=== PATIENT | male | born 1970 | race Caucasian/White ===

== ENCOUNTER 2017-03-04 10:48 | Inpatient (IN) | payer MEDICAID ==
[~2017-03-04] VITALS: Ht 177.8 cm; Wt 117.9 kg
[~2017-03-04 10:48] MED LIST: ALPR1TAB7 PO; BACL20TA PO; BENZ2TAB2 PO; CLON1TAB3 PO; FENT100D2 TD; FLUO20CA19 PO; GABA800T97 PO; HAL5T PO; LEVE100012 PO; LITH300T5 PO; OXYC10TA44 PO; PERCOT PO; PRI50T PO; PROM25TA5 PO; QUET400T PO
[2017-03-04] MEDS ORDERED: SODIUM CHLORIDE 0.9% 1,000 ML IVB ONE (11:03)
[2017-03-04 11:33] LABS: Basophils # (auto) 0 uL; Basophils % (auto) 0.6 % (0.0-2.0); CONDITION Y; Eosinophils # (auto) 0.4 uL; Eosinophils % (auto) 6.5 % (0.0-7.0); Hematocrit 40.3 % (41.0-53.0); Hemoglobin 13.4 g/dL (13.5-17.5); Lymphocytes # (auto) 1.6 uL; Mean Corpuscular Hgb Conc. 33.2 g/dL (32.0-36.0); Mean Corpuscular Volume 87.3 fL (80.0-100.0); Mean Platelet Volume 6.7 fL (7.4-10.4); Monocytes # (auto) 0.4 uL; Monocytes % (auto) 6.3 % (0.0-12.0); Neutrophils # (auto) 4.3 uL; Neutrophils % (auto) 62.6 % (37.0-80.0); Platelet Count (auto) 342 10^3/uL (140-450); Red Cell Distribution Width 13.7 % (11.6-16.0); White Blood Cell 6.8 10^3/uL (4.4-10.8)
[2017-03-04 11:44] LABS: INR 0.95 (0.9-1.15); Partial Thromboplastin Time 25.5 sec (22.64-33.71); Prothrombin Time 10.4 sec (9.37-12.3)
[2017-03-04 11:51] LABS: Albumin 3.3 g/dL (3.4-5.0); Alkaline Phosphatase 137 U/L (45-117); Anion Gap 5 (5-15); Aspartate Aminotransferase 14 U/L (15-37); BUN/Creatinine Ratio 9.8; Bilirubin, Total 0.1 mg/dL (0.2-1.0); Blood Urea Nitrogen 9 mg/dL (7-18); Calcium 8.4 mg/dL (8.5-10.1); Carbon Dioxide 27 mmol/L (21-32); Chloride 109 mmol/L (98-107); GFR African American 113 mL/min; GFR Non-African American 94 mL/min; Glucose 101 mg/dL (74-106); Magnesium 2.3 mg/dL (1.6-2.6); Potassium 3.9 mmol/L (3.5-5.1); Sodium 141 mmol/L (136-145); Total Protein 7.2 g/dL (6.4-8.2)
[2017-03-04] MEDS ORDERED: MORPHINE SULF INJ 2 MG/ML SYRINGE 1ML IV PRN (13:45)
[2017-03-04] MEDS ORDERED: NITROGLYCERIN 0.4 MG SL TAB SL PRN (13:45)
[2017-03-04 13:48] LABS: Acetaminophen < 2.0 ug/mL (10-30); Salicylate 2.8 mg/dL (2.8-20.0)
[2017-03-04] MEDS: SODIUM CHLORIDE 0.9% 1,000 ML IV SCH (14:00)
[2017-03-04] MEDS ORDERED: IOHEXOL 350 MG/ML 100ML IJ ONE (14:09)
[2017-03-04 14:24] LABS: Urine RBC None Seen /hpf (0 - 3)
[2017-03-04 14:45] LABS: Urine Bilirubin Negative (Negative); Urine Blood Negative /uL (Negative); Urine Color Yellow (Yellow); Urine Glucose Normal (Normal); Urine Ketone Negative (Negative); Urine Nitrite Negative (Negative); Urine Urobilinogen Normal (Negative); Urine pH 6.5 (5.0-8.0)
[2017-03-04 20:30] VITALS: BP 123/87
[2017-03-04 22:00] VITALS: BP 123/87
[2017-03-04] MEDS ORDERED: LEVETIRACETAM 500 MG TAB PO SCH (22:00)
[2017-03-05] MEDS: SODIUM CHLORIDE 0.9% 1,000 ML IV SCH
[2017-03-05 00:50] VITALS: BP 123/87
[2017-03-05 05:00] VITALS: BP 107/76
[2017-03-05 07:27] LABS: Basophils # (auto) 0 uL; Basophils % (auto) 0.5 % (0.0-2.0); CONDITION Y; Eosinophils # (auto) 0.5 uL; Eosinophils % (auto) 5.2 % (0.0-7.0); Hematocrit 40.7 % (41.0-53.0); Hemoglobin 13.9 g/dL (13.5-17.5); Lymphocytes # (auto) 1.3 uL; Lymphocytes % (auto) 15.4 % (10.0-50.0); Mean Corpuscular Hemoglobin 29.7 pg (28.0-32.0); Mean Corpuscular Hgb Conc. 34.2 g/dL (32.0-36.0); Mean Corpuscular Volume 86.8 fL (80.0-100.0); Mean Platelet Volume 6.9 fL (7.4-10.4); Monocytes # (auto) 0.4 uL; Monocytes % (auto) 4.7 % (0.0-12.0); Neutrophils # (auto) 6.5 uL; Neutrophils % (auto) 74.2 % (37.0-80.0); Platelet Count (auto) 306 10^3/uL (140-450); White Blood Cell 8.7 10^3/uL (4.4-10.8)
[2017-03-05 07:52] LABS: Albumin 3.3 g/dL (3.4-5.0); BUN/Creatinine Ratio 12.4; Bilirubin, Total 0.2 mg/dL (0.2-1.0); Calcium 8.3 mg/dL (8.5-10.1); Potassium 4.2 mmol/L (3.5-5.1); Total Protein 7.4 g/dL (6.4-8.2)
[2017-03-05 08:46] VITALS: BP 141/100
== END 2017-03-05 07:50 | disposition left against medical advice (07) | DRG 812 ==
LOC: EDBD 10:48 → ER 10:55 → TELE 10:56 → TELE-EAST 21:10
PROVIDERS: ADMIT Nurse Practitioner Family; ATTEND Nurse Practitioner Family
DX: T40.601A Poisoning by unspecified narcotics, accidental (unintentional), initial encounter (principal); G93.1 Anoxic brain damage, not elsewhere classified; I10 Essential (primary) hypertension; J44.9 Chronic obstructive pulmonary disease, unspecified; F32.9 Major depressive disorder, single episode, unspecified; F20.9 Schizophrenia, unspecified; F41.9 Anxiety disorder, unspecified; E66.9 Obesity, unspecified; F17.210 Nicotine dependence, cigarettes, uncomplicated; G89.29 Other chronic pain; Z82.49 Family history of ischemic heart disease and other diseases of the circulatory system; Z90.89 Acquired absence of other organs; Z71.89 Other specified counseling; Z81.8 Family history of other mental and behavioral disorders; Z80.9 Family history of malignant neoplasm, unspecified; Z53.21 Procedure and treatment not carried out due to patient leaving prior to being seen by health care provider
CPT/HCPCS: 36415; 70450; 71010; 80053; 80178; 80307; 80320; 80329; 81001; 82542; 82962; 83605; 83735; 84484; 85025; 85379; 85610; 85730; 87040; 87086; 93005; 96360; 99291

== ENCOUNTER 2021-01-05 16:11 | Emergency (ER) | payer MEDICAID ==
[~2021-01-05] VITALS: Ht 175.3 cm; Wt 102.1 kg
[~2021-01-05 16:11] MED LIST changes: +CLON1TAB10 PO; -CLON1TAB3 PO; -HAL5T PO; -PERCOT PO; -PRI50T PO; +PRIM50TA5 PO; +TEMA15CA2 PO; +TRIH5TAB3 PO
[2021-01-05 16:14] VITALS: BP 116/97
== END 2021-01-05 21:33 | disposition home or self-care (01) ==
LOC: ER 16:11
DX: M79.89 Other specified soft tissue disorders (principal); M79.671 Pain in right foot; J44.9 Chronic obstructive pulmonary disease, unspecified; I10 Essential (primary) hypertension; F41.9 Anxiety disorder, unspecified; F17.210 Nicotine dependence, cigarettes, uncomplicated; F12.10 Cannabis abuse, uncomplicated; F15.10 Other stimulant abuse, uncomplicated
CPT/HCPCS: 73630

== ENCOUNTER 2021-02-15 21:39 | Emergency (ER) | payer MEDICAID ==
[~2021-02-15] VITALS: Ht 170.2 cm; Wt 90.7 kg
[~2021-02-15 21:39] MED LIST changes: +CLON-853 PO; -CLON1TAB10 PO
[2021-02-15] MEDS ORDERED: NALOXONE HCL 0.4 MG/ML VIAL ONE (22:24)
[2021-02-15] MEDS ORDERED: SODIUM CHLORIDE 0.9% 2,000 ML IV ONE (22:30)
[2021-02-15] MEDS ORDERED: NALOXONE HCL 0.4 MG/ML VIAL IV ONE ×2 (22:30→23:15)
[2021-02-15] MEDS ORDERED: FLUMAZENIL 0.1 MG/ML INJ 10ML MDV IV ONE (23:15)
[2021-02-15 23:16] LABS: Basophils # (auto) 0.1 10 ^3/uL (0-0.2); Basophils % (auto) 0.7 % (0.0-2.0); Eosinophils # (auto) 0.4 10 ^3/uL (0-0.8); Eosinophils % (auto) 3.8 % (0.0-7.0); Hematocrit 41.1 % (41.0-53.0); Lymphocytes # (auto) 1.6 10 ^3/uL (0.4-5.4); Lymphocytes % (auto) 14.4 % (10.0-50.0); Mean Corpuscular Hemoglobin 30.2 pg (28.0-32.0); Mean Corpuscular Hgb Conc. 34.1 g/dL (32.0-36.0); Mean Corpuscular Volume 88.7 fL (80.0-100.0); Monocytes # (auto) 0.8 10 ^3/uL (0-1.3); Monocytes % (auto) 6.8 % (0.0-12.0); Neutrophils # (auto) 8.2 10 ^3/uL (1.6-8.6); Neutrophils % (auto) 74.3 % (37.0-80.0); Red Blood Cells 4.64 10^6/uL (4.5-5.90); Red Cell Distribution Width 13.5 % (11.8-14.3); White Blood Cell 11.1 10^3/uL (4.4-10.8)
[2021-02-15 23:36] LABS: Albumin 3.4 g/dL (3.4-5.0); Anion Gap 1 (5-15); BUN/Creatinine Ratio 9.6; Blood Alcohol < 3.0 mg/dL (0-5); Blood Urea Nitrogen 15 mg/dL (7-18); Calcium 8.6 mg/dL (8.5-10.1); Carbon Dioxide 31 mmol/L (21-32); Chloride 104 mmol/L (98-107); GFR African American 60 mL/min; GFR Non-African American 50 mL/min; Glucose 75 mg/dL (74-106); Potassium 4.4 mmol/L (3.5-5.1); Salicylate 3.2 mg/dL (2.8-20.0); Sodium 136 mmol/L (136-145)
[2021-02-15 23:47] LABS: Acetaminophen < 2.0 ug/mL (10-30); Alanine Aminotransferase 19 U/L (16-61); Alkaline Phosphatase 144 U/L (45-117); Aspartate Aminotransferase 13 U/L (15-37); Bilirubin, Total 0.4 mg/dL (0.2-1.0); Total Protein 7.1 g/dL (6.4-8.2)
[2021-02-16] MEDS ORDERED: NALOXONE HCL 2 MG in DEXTROSE 495 ML IV ONE (01:15)
[2021-02-16] MEDS ORDERED: NALOXONE HCL 1MG/ML 2ML SYRINGE ONE (01:24)
[2021-02-16 03:10] LABS: Urine Bacteria NONE SEEN /hpf (None Seen); Urine Blood Negative /uL (Negative); Urine Specific Gravity 1.004 (1.001-1.035); Urine WBC <1 /hpf (0 - 3)
[2021-02-16 03:17] LABS: Alcohol, Urine < 3.0 mg/dL (0-10); Amphetamine Screen, Urine NEGATIVE (NEGATIVE); Barbiturate Scree,Urine NEGATIVE (NEGATIVE); Benzodiazephine Screen, Urine POSITIVE (NEGATIVE); Cannabinoid Screen, Urine POSITIVE (NEGATIVE); Cocaine Screen, Urine NEGATIVE (NEGATIVE); Opiate Scree,Urine POSITIVE (NEGATIVE); Phencyclidine Screen, Urine NEGATIVE (NEGATIVE)
[2021-02-16 09:56] VITALS: BP 130/86
== END 2021-02-16 10:21 | disposition left against medical advice (07) ==
LOC: EDBD 21:39 → ER 21:39
DX: T42.4X1A Poisoning by benzodiazepines, accidental (unintentional), initial encounter (principal); T40.601A Poisoning by unspecified narcotics, accidental (unintentional), initial encounter; R41.82 Altered mental status, unspecified; J44.9 Chronic obstructive pulmonary disease, unspecified; F17.210 Nicotine dependence, cigarettes, uncomplicated; G93.41 Metabolic encephalopathy; F12.10 Cannabis abuse, uncomplicated; F15.10 Other stimulant abuse, uncomplicated; Y92.89 Other specified places as the place of occurrence of the external cause
CPT/HCPCS: 36415; 80053; 80307; 80320; 80329; 81001; 85025; 85049; 87426; 93005; 96361; 96365; 96366; 96375; 96376; 99285; J2310; J7030; J7060

== ENCOUNTER 2022-08-24 07:04 | Emergency (ER) | payer MEDICAID ==
[~2022-08-24] VITALS: Ht 175.3 cm; Wt 100.0 kg
[~2022-08-24 07:04] MED LIST changes: +AMOX-277 PO; +DAKI0.25 EX; +HAL5T PO; +HYDR-4902 PO; +MORP15TA PO; +ONDA-144 PO
[2022-08-24] MEDS ORDERED: CLIN300C8 PO (09:12)
[2022-08-24] MEDS ORDERED: CEPH-510 PO (09:12)
[2022-08-24] MEDS ORDERED: cefTRIAXone 1GM/50ML D5W 50 ML IV ONE (09:15)
[2022-08-24] MEDS ORDERED: CLINDAMYCIN 600MG IV 50 ML IV ONE (09:15)
[2022-08-24 14:54] LABS: Urine Bacteria NONE SEEN /hpf (None Seen); Urine Blood 2+ /uL (Negative); Urine WBC 14 /hpf (0 - 3)
[2022-08-24 15:02] LABS: Urine Specific Gravity > 1.050 (1.001-1.035)
[2022-08-24 15:03] VITALS: BP 130/95
== END 2022-08-24 15:04 | disposition home or self-care (01) ==
LOC: ER 07:04
DX: L03.115 Cellulitis of right lower limb (principal); J44.9 Chronic obstructive pulmonary disease, unspecified; I10 Essential (primary) hypertension; F17.210 Nicotine dependence, cigarettes, uncomplicated; Z90.49 Acquired absence of other specified parts of digestive tract; Z79.899 Other long term (current) drug therapy; Z79.2 Long term (current) use of antibiotics
CPT/HCPCS: 71275; 81001; 96365; 96366; 96367; 99285; J0696; J3490; Q9967

== ENCOUNTER 2022-11-03 11:21 | Outpatient (CLI) | payer MEDICAID ==
[~2022-11-03] VITALS: Ht 175.3 cm; Wt 97.5 kg
[~2022-11-03 11:21] MED LIST changes: +CEPH-510 PO; +CLIN300C8 PO
[2022-11-03 11:42] LABS: Basophils # (auto) 0.1 10 ^3/uL (0-0.2); Eosinophils # (auto) 0.3 10 ^3/uL (0-0.8); Eosinophils % (auto) 3.6 % (0.0-7.0); Hematocrit 47.3 % (41.0-53.0); Hemoglobin 15.7 g/dL (13.5-17.5); Lymphocytes # (auto) 1.4 10 ^3/uL (0.4-5.4); Mean Corpuscular Hemoglobin 29.4 pg (28.0-32.0); Mean Corpuscular Hgb Conc. 33.2 g/dL (32.0-36.0); Mean Corpuscular Volume 88.7 fL (80.0-100.0); Monocytes # (auto) 0.5 10 ^3/uL (0-1.3); Monocytes % (auto) 6.2 % (0.0-12.0); Neutrophils # (auto) 5.7 10 ^3/uL (1.6-8.6); Neutrophils % (auto) 71.2 % (37.0-80.0); Red Blood Cells 5.34 10^6/uL (4.5-5.90); Red Cell Distribution Width 13.4 % (11.8-14.3); White Blood Cell 7.9 10^3/uL (4.4-10.8)
[2022-11-03 12:01] LABS: INR 0.99 (0.9-1.15); Partial Thromboplastin Time 26.8 sec (24.6-33.4)
[2022-11-03 12:26] LABS: Albumin 3.5 g/dL (3.4-5.0); Calcium 9.1 mg/dL (8.5-10.1); Potassium 3.9 mmol/L (3.5-5.1)
[2022-11-03 12:29] LABS: Bilirubin, Total 0.4 mg/dL (0.2-1.0); Total Protein 7.9 g/dL (6.4-8.2)
[2022-11-03 12:43] LABS: Urine Bacteria NONE SEEN /hpf (None Seen); Urine Blood 3+ /uL (Negative); Urine Mucus FEW (None Seen); Urine Specific Gravity 1.026 (1.001-1.035); Urine WBC 7 /hpf (0 - 3)
[2022-11-06] MEDS ORDERED: GLYCOPYRROLATE 0.2 MG/ML 1ML VIAL ONE (11:00)
[2022-11-06] MEDS ORDERED: MIDAZOLAM HCL 2MG/2ML 2ml VIAL (1mg/ml) ONE (11:00)
[2022-11-06] MEDS ORDERED: ONDANSETRON HCL 4 MG/2 ML VIAL ONE (11:00)
[2022-11-06] MEDS ORDERED: PROPOFOL 10 MG/ML 20 ML IV ONE (11:00)
== END 2022-11-03 12:46 | disposition home or self-care (01) ==
LOC: LAB 11:21 → EDSTATUS 11-06 08:48
PROVIDERS: ATTEND Student in an Organized Health Care Education/Training Program
DX: Z01.812 Encounter for preprocedural laboratory examination (principal); Z20.822 Contact with and (suspected) exposure to COVID-19
CPT/HCPCS: 36415; 80053; 81001; 85025; 85610; 85730; U0003; J2250; J2405; J2704

== ENCOUNTER 2022-11-06 08:44 | Inpatient (IN) | payer MEDICAID ==
[~2022-11-06] VITALS: Ht 175.3 cm; Wt 114.5 kg
[~2022-11-06 08:44] MED LIST changes: -AMOX-277 PO; -BACL20TA PO; -CEPH-510 PO; -CLIN300C8 PO; -FENT100D2 TD; -HAL5T PO; -OXYC10TA44 PO; -TEMA15CA2 PO; -TRIH5TAB3 PO
[2022-11-06] MEDS ORDERED: SODIUM CHLORIDE 0.9% 1,000 ML IV ONE (10:00)
[2022-11-06] MEDS ORDERED: BUPIVACAINE HCL 50 ML ONE (10:02)
[2022-11-06] MEDS ORDERED: LIDOCAINE HCL (LOCAL ANESTH.) 0.5 % 50ML MDV IJ ONE (10:02)
[2022-11-06 11:04] LABS: INR 1.03 (0.9-1.15); Partial Thromboplastin Time 24.2 sec (24.6-33.4)
[2022-11-06] MEDS ORDERED: HYDROmorphone HCL 2 MG/ML VL/or syr IV PRN (12:30)
[2022-11-06] MEDS ORDERED: ONDANSETRON HCL 4 MG/2 ML VIAL IV PRN ×2 (12:30→15:00)
[2022-11-06] MEDS ORDERED: MORPHINE SULFATE INJ 2 MG/ml SYRG IV PRN (15:00)
[2022-11-06] MEDS ORDERED: HYDROcodone-ACET 5/325MG TAB PO PRN (15:00)
[2022-11-06] MEDS ORDERED: ACETAMINOPHEN 325 MG TAB PO PRN (15:00)
[2022-11-06] MEDS ORDERED: NITROGLYCERIN 0.4 MG SL TAB SL PRN (15:00)
[2022-11-06] MEDS ORDERED: cefTRIAXone 1GM/50ML D5W 50 ML IV ONE (15:00)
[2022-11-06] MEDS ORDERED: DOCUSATE SOD 100 MG CAP PO PRN (15:00)
[2022-11-06] MEDS ORDERED: ALPR1TAB7 PO (15:02)
[2022-11-06] MEDS ORDERED: ROSU1TAB13 PO (15:02)
[2022-11-06] MEDS ORDERED: HAL5T PO (15:02)
[2022-11-06] MEDS ORDERED: QUET400T13 PO (15:02)
[2022-11-06] MEDS ORDERED: LITH300C3 PO (15:02)
[2022-11-06] MEDS ORDERED: VANCOMYCIN PER PHARMACY 0 MG IV SCH (16:45)
[2022-11-06] MEDS ORDERED: VANCOMYCIN 1GM/250ML 250 ML IV ONE (17:15)
[2022-11-06] MEDS: HALOPERIDOL 5 MG TAB PO SCH ×2 (18:28→21:42)
[2022-11-06 18:29] LABS: Basophils # (auto) 0.1 10 ^3/uL (0-0.2); Basophils % (auto) 0.7 % (0.0-2.0); Eosinophils # (auto) 0.4 10 ^3/uL (0-0.8); Hematocrit 43.5 % (41.0-53.0); Hemoglobin 14.2 g/dL (13.5-17.5); Lymphocytes # (auto) 1.5 10 ^3/uL (0.4-5.4); Lymphocytes % (auto) 15.5 % (10.0-50.0); Mean Corpuscular Hemoglobin 28.9 pg (28.0-32.0); Mean Corpuscular Hgb Conc. 32.6 g/dL (32.0-36.0); Mean Corpuscular Volume 88.7 fL (80.0-100.0); Monocytes # (auto) 0.6 10 ^3/uL (0-1.3); Monocytes % (auto) 6.5 % (0.0-12.0); Neutrophils # (auto) 7.3 10 ^3/uL (1.6-8.6); Neutrophils % (auto) 73.3 % (37.0-80.0); Red Cell Distribution Width 13.5 % (11.8-14.3); White Blood Cell 9.9 10^3/uL (4.4-10.8)
[2022-11-06] MEDS: MORPHINE SULFATE INJ 2 MG/ml SYRG IV PRN (18:46)
[2022-11-06] MEDS ORDERED: CYCL-839 PO (19:06)
[2022-11-06] MEDS ORDERED: FENT25DI2 TD (19:06)
[2022-11-06] MEDS ORDERED: ALPR1TAB2 PO (19:06)
[2022-11-06 19:08] LABS: Calcium 8.9 mg/dL (8.5-10.1); Potassium 4.3 mmol/L (3.5-5.1)
[2022-11-06 19:11] LABS: Albumin 3.1 g/dL (3.4-5.0)
[2022-11-06 19:14] LABS: Bilirubin, Total 0.6 mg/dL (0.2-1.0)
[2022-11-06 20:00] VITALS: BP 94/56
[2022-11-06] MEDS: LITHIUM CARBONATE 300 MG TAB PO SCH (21:41)
[2022-11-06] MEDS: GABAPENTIN 400 MG CAP PO SCH (21:41)
[2022-11-06] MEDS: MORPHINE SULF 30 mg ER tab PO SCH (21:42)
[2022-11-06 22:00] VITALS: BP 94/56
[2022-11-06] MEDS ORDERED: MORPHINE SULFATE 15 MG PO SCH (22:00)
[2022-11-06] MEDS: ATORVASTATIN 20 MG TAB PO SCH (22:00)
[2022-11-07 05:11] VITALS: BP 127/89
[2022-11-07] MEDS: GABAPENTIN 400 MG CAP PO SCH ×3 (06:08→21:36)
[2022-11-07] MEDS: MORPHINE SULFATE INJ 2 MG/ml SYRG IV PRN ×2 (06:11→18:24)
[2022-11-07] MEDS: VANCOMYCIN 750mg/250ml 250 ML IV SCH ×2 (06:13→18:22)
[2022-11-07] MEDS: HALOPERIDOL 5 MG TAB PO SCH ×4 (06:16→21:36)
[2022-11-07 06:29] LABS: Basophils # (auto) 0.1 10 ^3/uL (0-0.2); Basophils % (auto) 0.6 % (0.0-2.0); Eosinophils # (auto) 0.5 10 ^3/uL (0-0.8); Eosinophils % (auto) 5.5 % (0.0-7.0); Hematocrit 40.5 % (41.0-53.0); Hemoglobin 13.4 g/dL (13.5-17.5); Lymphocytes # (auto) 1.7 10 ^3/uL (0.4-5.4); Lymphocytes % (auto) 17.9 % (10.0-50.0); Mean Corpuscular Hemoglobin 28.9 pg (28.0-32.0); Mean Corpuscular Hgb Conc. 33.1 g/dL (32.0-36.0); Mean Corpuscular Volume 87.3 fL (80.0-100.0); Monocytes # (auto) 0.6 10 ^3/uL (0-1.3); Monocytes % (auto) 6.6 % (0.0-12.0); Neutrophils # (auto) 6.7 10 ^3/uL (1.6-8.6); Neutrophils % (auto) 69.4 % (37.0-80.0); Nucleated Red Blood Cells % 0.2 %; Red Blood Cells 4.64 10^6/uL (4.5-5.90); White Blood Cell 9.6 10^3/uL (4.4-10.8)
[2022-11-07 06:32] LABS: Albumin 3.1 g/dL (3.4-5.0); Calcium 8.6 mg/dL (8.5-10.1); Potassium 4.4 mmol/L (3.5-5.1)
[2022-11-07 06:34] LABS: BUN/Creatinine Ratio 11.5
[2022-11-07 06:37] LABS: Bilirubin, Total 0.5 mg/dL (0.2-1.0); Total Protein 6.3 g/dL (6.4-8.2)
[2022-11-07 08:26] VITALS: BP 131/85
[2022-11-07] MEDS ORDERED: cefTRIAXone 1GM/50ML D5W 50 ML IV SCH (09:00)
[2022-11-07] MEDS: PANTOPRAZOLE 40 MG/10 ML VIAL INJ IV SCH (09:51)
[2022-11-07] MEDS: LITHIUM CARBONATE 300 MG TAB PO SCH ×2 (09:52→21:35)
[2022-11-07] MEDS: FLUoxetine HCL 20 MG CAP PO SCH (09:52)
[2022-11-07] MEDS: MORPHINE SULF 30 mg ER tab PO SCH ×2 (09:53→21:37)
[2022-11-07] MEDS ORDERED: QUEtiapine FUMARATE 100 MG TAB PO SCH (10:00)
[2022-11-07 13:00] VITALS: BP 123/82
[2022-11-07 17:27] VITALS: BP 105/70
[2022-11-07 20:00] VITALS: BP 134/76
[2022-11-07] MEDS: ATORVASTATIN 20 MG TAB PO SCH (21:36)
[2022-11-07 22:00] VITALS: BP 91/49
[2022-11-08] MEDS: MORPHINE SULFATE INJ 2 MG/ml SYRG IV PRN ×3 (04:26→18:37)
[2022-11-08 05:00] VITALS: BP 110/69
[2022-11-08] MEDS: HALOPERIDOL 5 MG TAB PO SCH ×4 (06:35→21:43)
[2022-11-08] MEDS: GABAPENTIN 400 MG CAP PO SCH ×3 (06:35→21:41)
[2022-11-08] MEDS: VANCOMYCIN 750mg/250ml 250 ML IV SCH (06:36)
[2022-11-08 09:00] VITALS: BP 138/84
[2022-11-08] MEDS: LITHIUM CARBONATE 300 MG TAB PO SCH ×2 (10:26→21:40)
[2022-11-08] MEDS: PANTOPRAZOLE 40 MG/10 ML VIAL INJ IV SCH (10:26)
[2022-11-08] MEDS: MORPHINE SULF 30 mg ER tab PO SCH ×2 (10:27→21:40)
[2022-11-08] MEDS: FLUoxetine HCL 20 MG CAP PO SCH (10:27)
[2022-11-08 13:00] VITALS: BP 134/88
[2022-11-08 17:00] VITALS: BP 144/93
[2022-11-08] MEDS: VANCOMYCIN 1GM/250ML 250 ML IV SCH (19:45)
[2022-11-08 20:00] VITALS: BP 142/91
[2022-11-08] MEDS: QUEtiapine FUMARATE 100 MG TAB PO SCH (21:41)
[2022-11-08] MEDS: ATORVASTATIN 20 MG TAB PO SCH (21:42)
[2022-11-08 22:15] VITALS: BP 142/91
[2022-11-09] MEDS: MORPHINE SULFATE INJ 2 MG/ml SYRG IV PRN ×5 (00:07→20:36)
[2022-11-09 04:55] VITALS: BP 115/72
[2022-11-09] MEDS: HALOPERIDOL 5 MG TAB PO SCH ×4 (05:46→21:35)
[2022-11-09] MEDS: GABAPENTIN 400 MG CAP PO SCH ×3 (05:46→21:36)
[2022-11-09] MEDS: VANCOMYCIN 1GM/250ML 250 ML IV SCH (06:13)
[2022-11-09 08:00] VITALS: BP 136/91
[2022-11-09] MEDS: FLUoxetine HCL 20 MG CAP PO SCH (09:15)
[2022-11-09] MEDS: MORPHINE SULF 30 mg ER tab PO SCH ×2 (09:15→21:36)
[2022-11-09] MEDS: LITHIUM CARBONATE 300 MG TAB PO SCH ×2 (09:15→21:35)
[2022-11-09] MEDS: PANTOPRAZOLE 40 MG/10 ML VIAL INJ IV SCH (09:15)
[2022-11-09 12:00] VITALS: BP 145/77
[2022-11-09] MEDS: AMPICILLIN & SULBACTAM SODIUM 3 GM in SODIUM CHL 0.9% 100 ML IV SCH ×2 (14:06→18:47)
[2022-11-09 16:00] VITALS: BP 146/98
[2022-11-09 16:25] LABS: INR 1.02 (0.9-1.15); Partial Thromboplastin Time 27.6 sec (24.6-33.4)
[2022-11-09] MEDS ORDERED: LIDOCAINE 1% (LOCAL ANESTH.) PF 5ml SDV ID ONE (19:15)
[2022-11-09 20:00] VITALS: BP 144/84
[2022-11-09] MEDS: SODIUM CHLOR 0.9% PF (SALINE LOCK) 10ML VIAL/SYR IV SCH (21:34)
[2022-11-09] MEDS: ATORVASTATIN 20 MG TAB PO SCH (21:36)
[2022-11-09] MEDS: QUEtiapine FUMARATE 100 MG TAB PO SCH (21:37)
[2022-11-09 22:00] VITALS: BP 144/84
[2022-11-10] MEDS: AMPICILLIN & SULBACTAM SODIUM 3 GM in SODIUM CHL 0.9% 100 ML IV SCH ×3 (00:37→12:37)
[2022-11-10] MEDS: MORPHINE SULFATE INJ 2 MG/ml SYRG IV PRN ×3 (02:29→12:36)
[2022-11-10 05:00] VITALS: BP 130/86
[2022-11-10] MEDS: GABAPENTIN 400 MG CAP PO SCH ×2 (05:42→14:38)
[2022-11-10] MEDS: HALOPERIDOL 5 MG TAB PO SCH ×2 (05:42→12:36)
[2022-11-10 08:00] VITALS: BP_SYST 128; BP_SYST 144; BP_DIAS 83; BP_DIAS 84
[2022-11-10] MEDS: FLUoxetine HCL 20 MG CAP PO SCH (10:26)
[2022-11-10] MEDS: LITHIUM CARBONATE 300 MG TAB PO SCH (10:26)
[2022-11-10] MEDS: MORPHINE SULF 30 mg ER tab PO SCH (10:26)
[2022-11-10] MEDS: SODIUM CHLOR 0.9% PF (SALINE LOCK) 10ML VIAL/SYR IV SCH (10:29)
[2022-11-10 12:45] LABS: BUN/Creatinine Ratio 8.4 (10.0-20.0); Calcium 8.9 mg/dL (8.5-10.1); Potassium 3.8 mmol/L (3.5-5.1)
[2022-11-10 13:00] VITALS: BP 141/90
== END 2022-11-10 15:53 | disposition home health service (06) | DRG 314 ==
LOC: ER 08:44 → OVERFLOW 15:02 → TELE-EAST 16:10
PROVIDERS: ADMIT Nurse Practitioner Family; ATTEND Internal Medicine
PROC: 0Y6V0Z0 Detachment at Right 4th Toe, Complete, Open Approach (ICD-10-PCS; principal; 2022-11-06 11:20)
PROC: 02HV33Z Insertion of Infusion Device into Superior Vena Cava, Percutaneous Approach (ICD-10-PCS; 2022-11-09)
PROC: B548ZZA Ultrasonography of Superior Vena Cava, Guidance (ICD-10-PCS; 2022-11-09)
DX: E11.69 Type 2 diabetes mellitus with other specified complication (principal); J96.00 Acute respiratory failure, unspecified whether with hypoxia or hypercapnia; M86.171 Other acute osteomyelitis, right ankle and foot; S91.311A Laceration without foreign body, right foot, initial encounter; E66.9 Obesity, unspecified; B95.61 Methicillin susceptible Staphylococcus aureus infection as the cause of diseases classified elsewhere; R56.9 Unspecified convulsions; F20.9 Schizophrenia, unspecified; F32.A Depression, unspecified; F41.9 Anxiety disorder, unspecified; I10 Essential (primary) hypertension; K59.00 Constipation, unspecified; R32 Unspecified urinary incontinence; X58.XXXA Exposure to other specified factors, initial encounter; Y93.89 Activity, other specified; Y92.89 Other specified places as the place of occurrence of the external cause; Y99.8 Other external cause status
CPT/HCPCS: 36415; 36569; 71045; 73630; 80048; 80053; 80178; 80202; 85025; 85610; 85730; 87070; 87075; 87076; 87077; 87186; 87205; 87426; 96360; C9113; G0378; J0696; J2250; J2405; J2704; J3490

== ENCOUNTER 2023-06-08 18:33 | Emergency (ER) | payer MEDICAID ==
[~2023-06-08] VITALS: Ht 182.9 cm; Wt 113.6 kg
[~2023-06-08 18:33] MED LIST changes: +ALPR1TAB2 PO; -ALPR1TAB7 PO; -BENZ2TAB2 PO; +BENZ2TAB50 PO; +CYCL-839 PO; -DAKI0.25 EX; +FENT25DI2 TD; +HAL5T PO; -HYDR-4902 PO; +LITH300C3 PO; +PROM25TA10 PO; -PROM25TA5 PO; -QUET400T PO; +QUET400T13 PO; +ROSU10TA64 PO
[2023-06-08] MEDS ORDERED: SODIUM CHLORIDE 0.9% 1,000 ML IV ONE ×2 (19:00→20:15)
[2023-06-08 19:30] VITALS: PULSE 70; RESP 18; TEMP 98.6; O2SAT 94
[2023-06-08 19:33] LABS: Basophils # (auto) 0.1 10 ^3/uL (0-0.2); Basophils % (auto) 0.7 % (0.0-2.0); Eosinophils # (auto) 0.4 10 ^3/uL (0-0.8); Eosinophils % (auto) 4.2 % (0.0-7.0); Hematocrit 36.5 % (41.0-53.0); Hemoglobin 12.1 g/dL (13.5-17.5); Lymphocytes % (auto) 9.2 % (10.0-50.0); Mean Corpuscular Hemoglobin 29.7 pg (28.0-32.0); Mean Corpuscular Hgb Conc. 33.2 g/dL (32.0-36.0); Mean Corpuscular Volume 89.3 fL (80.0-100.0); Monocytes # (auto) 0.6 10 ^3/uL (0-1.3); Monocytes % (auto) 6.1 % (0.0-12.0); Neutrophils # (auto) 8.3 10 ^3/uL (1.6-8.6); Neutrophils % (auto) 79.8 % (37.0-80.0); Red Blood Cells 4.08 10^6/uL (4.5-5.90); Red Cell Distribution Width 12.9 % (11.8-14.3); White Blood Cell 10.4 10^3/uL (4.4-10.8)
[2023-06-08 19:52] LABS: Alanine Aminotransferase 27 U/L (7-40); Albumin 3.9 g/dL (3.2-4.8); Alkaline Phosphatase 131 U/L (46-116); Anion Gap 4 (5-15); Aspartate Aminotransferase 34 U/L (13-40); BUN/Creatinine Ratio 8.2 (10.0-20.0); Bilirubin, Total 0.2 mg/dL (0.2-1.0); Blood Urea Nitrogen 19 mg/dL (9-23); Calcium 8.8 mg/dL (8.5-10.1); Carbon Dioxide 29 mmol/L (20-30); Chloride 101 mmol/L (98-107); Glucose 112 mg/dL (74-106); Potassium 4.1 mmol/L (3.5-5.1); Sodium 134 mmol/L (136-145); Total Protein 6.6 g/dL (5.7-8.2)
[2023-06-09 00:13] LABS: Amphetamine Screen, Urine Neg (NEGATIVE); Barbiturate Scree,Urine Pos (NEGATIVE); Benzodiazephine Screen, Urine Pos (NEGATIVE); Cocaine Screen, Urine Neg (NEGATIVE); Opiate Scree,Urine Pos (NEGATIVE)
[2023-06-09 00:14] LABS: Cannabinoid Screen, Urine Pos (NEGATIVE); Phencyclidine Screen, Urine Neg (NEGATIVE)
[2023-06-09 07:20] VITALS: PULSE 70; RESP 18; O2SAT 98
[2023-06-09] MEDS ORDERED: levETIRAcetam 500 MG TAB PO ONE (07:45)
[2023-06-09 08:00] VITALS: BP 106/47; PULSE 73; RESP 18; O2SAT 97
[2023-06-12 16:06] LABS: Levetiracetam (Keppra) 67.7 ug/mL (10.0-40.0)
== END 2023-06-09 08:32 | disposition home or self-care (01) ==
LOC: EDBD 18:33 → ER 18:33
DX: G40.909 Epilepsy, unspecified, not intractable, without status epilepticus (principal); F11.20 Opioid dependence, uncomplicated; I10 Essential (primary) hypertension; R51.9 Headache, unspecified; J44.9 Chronic obstructive pulmonary disease, unspecified; F17.210 Nicotine dependence, cigarettes, uncomplicated
CPT/HCPCS: 36415; 70450; 80053; 80178; 80307; 82542; 85025; 93005; 96360; 96361; 99285; J7030

== ENCOUNTER 2023-08-19 12:57 | Emergency (ER) | payer MEDICAID ==
[~2023-08-19] VITALS: Ht 175.3 cm; Wt 109.9 kg
[2023-08-19 13:00] VITALS: BP 123/70; RESP 16; O2SAT 94
[2023-08-19 13:15] VITALS: PULSE 71
[2023-08-19] MEDS ORDERED: LACTATED RINGER'S 1,000 ML IV ONE (13:15)
[2023-08-19 14:05] LABS: Basophils # (auto) 0.1 10 ^3/uL (0-0.2); Basophils % (auto) 0.8 % (0.0-2.0); Eosinophils # (auto) 0.2 10 ^3/uL (0-0.8); Eosinophils % (auto) 2.6 % (0.0-7.0); Hematocrit 38.8 % (41.0-53.0); Hemoglobin 12.8 g/dL (13.5-17.5); Lymphocytes # (auto) 0.5 10 ^3/uL (0.4-5.4); Lymphocytes % (auto) 5.9 % (10.0-50.0); Mean Corpuscular Hemoglobin 29.6 pg (28.0-32.0); Mean Corpuscular Volume 89.7 fL (80.0-100.0); Monocytes # (auto) 0.3 10 ^3/uL (0-1.3); Monocytes % (auto) 3.6 % (0.0-12.0); Neutrophils # (auto) 7.2 10 ^3/uL (1.6-8.6); Neutrophils % (auto) 87.1 % (37.0-80.0); Red Blood Cells 4.33 10^6/uL (4.5-5.90); Red Cell Distribution Width 13.7 % (11.8-14.3); White Blood Cell 8.3 10^3/uL (4.4-10.8)
[2023-08-19 14:33] LABS: Alanine Aminotransferase 14 U/L (7-40); Albumin 4.3 g/dL (3.2-4.8); Alkaline Phosphatase 192 U/L (46-116); Anion Gap 7 (5-15); Aspartate Aminotransferase 22 U/L (13-40); BUN/Creatinine Ratio 14.5 (10.0-20.0); Blood Alcohol < 3.0 mg/dL (<10); Blood Urea Nitrogen 36 mg/dL (9-23); Calcium 9.6 mg/dL (8.5-10.1); Carbon Dioxide 24 mmol/L (20-30); Chloride 102 mmol/L (98-107); Glucose 82 mg/dL (74-106); Potassium 4.1 mmol/L (3.5-5.1); Sodium 133 mmol/L (136-145)
[2023-08-19 14:34] LABS: Bilirubin, Total 0.3 mg/dL (0.2-1.0); Total Protein 6.8 g/dL (5.7-8.2)
[2023-08-19 14:36] LABS: Magnesium 2.5 mg/dL (1.6-2.6)
[2023-08-19] MEDS ORDERED: ZOFR4T PO (21:07)
== END 2023-08-20 04:26 | disposition left against medical advice (07) ==
LOC: EDBD 12:57 → ER 12:57
DX: M79.10 Myalgia, unspecified site (principal); R11.2 Nausea with vomiting, unspecified; R68.83 Chills (without fever); R07.89 Other chest pain; I10 Essential (primary) hypertension; J44.9 Chronic obstructive pulmonary disease, unspecified; F17.210 Nicotine dependence, cigarettes, uncomplicated; Z90.49 Acquired absence of other specified parts of digestive tract; Z79.899 Other long term (current) drug therapy
CPT/HCPCS: 36415; 71046; 80053; 80320; 83605; 83735; 84484; 85025; 87040; 93005

== ENCOUNTER 2023-08-24 08:25 | Inpatient (IN) | payer MEDICAID ==
[~2023-08-24] VITALS: Ht 175.3 cm; Wt 100.8 kg
[~2023-08-24 08:25] MED LIST changes: +ZOFR4T PO
[2023-08-24 09:42] LABS: Basophils # (auto) 0 10 ^3/uL (0-0.2); Basophils % (auto) 0.4 % (0.0-2.0); Eosinophils # (auto) 0.3 10 ^3/uL (0-0.8); Hematocrit 44.1 % (41.0-53.0); Hemoglobin 14.1 g/dL (13.5-17.5); Lymphocytes # (auto) 1.1 10 ^3/uL (0.4-5.4); Lymphocytes % (auto) 10.1 % (10.0-50.0); Mean Corpuscular Hemoglobin 29.8 pg (28.0-32.0); Mean Corpuscular Hgb Conc. 31.9 g/dL (32.0-36.0); Mean Corpuscular Volume 93.2 fL (80.0-100.0); Monocytes # (auto) 0.6 10 ^3/uL (0-1.3); Monocytes % (auto) 5.2 % (0.0-12.0); Neutrophils # (auto) 9.2 10 ^3/uL (1.6-8.6); Neutrophils % (auto) 81.3 % (37.0-80.0); Red Blood Cells 4.73 10^6/uL (4.5-5.90); Red Cell Distribution Width 14.2 % (11.8-14.3); White Blood Cell 11.3 10^3/uL (4.4-10.8)
[2023-08-24 10:25] LABS: Alanine Aminotransferase 18 U/L (7-40); Albumin 4.8 g/dL (3.2-4.8); Alkaline Phosphatase 251 U/L (46-116); Anion Gap 6 (5-15); Aspartate Aminotransferase 13 U/L (13-40); BUN/Creatinine Ratio 7.9 (10.0-20.0); Bilirubin, Total 0.4 mg/dL (0.2-1.0); Blood Urea Nitrogen 11 mg/dL (9-23); Calcium 10.4 mg/dL (8.5-10.1); Carbon Dioxide 27 mmol/L (20-30); Chloride 104 mmol/L (98-107); Glucose 90 mg/dL (74-106); Potassium 4.2 mmol/L (3.5-5.1); Sodium 137 mmol/L (136-145)
[2023-08-24 10:26] LABS: Total Protein 7.8 g/dL (5.7-8.2)
[2023-08-24 10:47] LABS: Urine Bacteria NONE SEEN /hpf (None Seen); Urine Blood 1+ /uL (Negative); Urine Clarity Clear (Clear); Urine Color Yellow (Yellow); Urine Hyaline Cast FEW /lpf (0 - 2); Urine Mucus FEW (None Seen); Urine Protein, UAD 1+ (Negative); Urine Specific Gravity 1.025 (1.001-1.035); Urine WBC 6 /hpf (0 - 3)
[2023-08-24 11:00] LABS: Amphetamine Screen, Urine Neg (NEGATIVE)
[2023-08-24 11:01] LABS: Barbiturate Scree,Urine Pos (NEGATIVE); Benzodiazephine Screen, Urine Pos (NEGATIVE); Cannabinoid Screen, Urine Pos (NEGATIVE); Cocaine Screen, Urine Neg (NEGATIVE); Opiate Scree,Urine Pos (NEGATIVE); Phencyclidine Screen, Urine Neg (NEGATIVE)
[2023-08-24] MEDS ORDERED: ASPirin 325 MG TAB PO ONE ×2 (15:45→16:15)
[2023-08-24 16:00] VITALS: PULSE 86; RESP 17; O2SAT 98
[2023-08-24] MEDS ORDERED: HYDROcodone-ACET 5/325MG TAB PO PRN (16:15)
[2023-08-24] MEDS ORDERED: DEXTROSE (50%) 50ML SYRG IV PRN (16:15)
[2023-08-24] MEDS ORDERED: NITROGLYCERIN 0.4 MG SL TAB SL PRN (16:15)
[2023-08-24] MEDS ORDERED: ONDANSETRON HCL 4 MG/2 ML VIAL IV PRN (16:15)
[2023-08-24] MEDS ORDERED: MORPHINE SULFATE INJ 2 MG/ml SYRG IV PRN (16:15)
[2023-08-24] MEDS ORDERED: ACETAMINOPHEN 325 MG TAB PO PRN (16:15)
[2023-08-24] MEDS ORDERED: IPRATROPIUM BROM 0.5 MG/2.5ML INH SOL NEB PRN (16:45)
[2023-08-24] MEDS ORDERED: ALBUTEROL SULF 2.5 MG/0.5ML(0.5%) NEB SOLN NEB PRN (16:45)
[2023-08-24] MEDS ORDERED: ACCU-CHEK COMFORT CURVE STRIP VI SCH (17:00)
[2023-08-24] MEDS: InsuLIN REG 1unit/0.01ml Soln (100units/ml) SC SCH (17:00)
[2023-08-24] MEDS ORDERED: LORazepam 2MG/ML-1ML VIAL IV PRN (17:30)
[2023-08-24 18:04] LABS: Triglycerides 132 mg/dL (< 150)
[2023-08-24 18:05] LABS: LDL Cholesterol 71 mg/dL (< 100)
[2023-08-24 18:06] LABS: Cholesterol 146 mg/dL (< 200); HDL Cholesterol 51 mg/dL (40-59)
[2023-08-24 20:15] VITALS: BP 129/77; PULSE 86; RESP 17; TEMP 99.2; O2SAT 98
[2023-08-24] MEDS: HALOPERIDOL 5 MG TAB PO SCH (20:41)
[2023-08-24] MEDS: CARBIDOPA W LEVODOPA 10/100mg TABLET PO SCH (20:41)
[2023-08-24] MEDS: CLOPIDOGREL BISULFATE 75 MG TAB PO SCH (20:42)
[2023-08-24] MEDS: ATORVASTATIN 20 MG TAB PO SCH (20:42)
[2023-08-24] MEDS: GABAPENTIN 400 MG CAP PO SCH (20:43)
[2023-08-24] MEDS: BUDESONIDE (INHALATION) 0.5 MG/2 ML NEB NEB SCH (21:57)
[2023-08-24 21:58] VITALS: O2SAT 96
[2023-08-24 21:59] VITALS: PULSE 78; RESP 18; O2SAT 96
[2023-08-24] MEDS: clonazePAM 0.5 MG TAB PO SCH (22:00)
[2023-08-24] MEDS ORDERED: levETIRAcetam 500 MG TAB PO SCH (22:00)
[2023-08-24] MEDS ORDERED: InsuLIN REG 1unit/0.01ml Soln (100units/ml) SC SCH (22:00)
[2023-08-24] MEDS ORDERED: QUEtiapine FUMARATE 100 MG TAB PO SCH (22:00)
[2023-08-24] MEDS: levETIRAcetam 1000 mg/100ml 100 ML IV SCH (22:00)
[2023-08-24 22:07] VITALS: PULSE 77; RESP 18; O2SAT 98
[2023-08-24 22:50] VITALS: O2SAT 97
[2023-08-24] MEDS: BENZTROPINE MESY 0.5 MG TAB PO SCH (22:50)
[2023-08-24] MEDS ORDERED: TOLT1CAP29 PO (23:49)
[2023-08-24] MEDS ORDERED: VIBE75TA PO (23:49)
[2023-08-24] MEDS ORDERED: DONE1TAB88 PO (23:49)
[2023-08-25] VITALS (84 sets, daily range): BP systolic 82–120; BP diastolic 47–77; PULSE 50–85; RESP 9–17; TEMP 97.5–99.2; O2SAT 91–100
[2023-08-25] MEDS ORDERED: ALBUMIN 5% 250 ML IV ONE (00:15)
[2023-08-25] MEDS: PHENYLEPHRINE IV 250 ML IV SCH ×5 (02:16→21:47)
[2023-08-25] MEDS: clonazePAM 0.5 MG TAB PO SCH ×3 (06:00→21:41)
[2023-08-25] MEDS: CARBIDOPA W LEVODOPA 10/100mg TABLET PO SCH ×4 (06:00→23:30)
[2023-08-25] MEDS: HALOPERIDOL 5 MG TAB PO SCH (06:00)
[2023-08-25] MEDS: GABAPENTIN 400 MG CAP PO SCH ×3 (06:11→21:40)
[2023-08-25] MEDS: InsuLIN REG 1unit/0.01ml Soln (100units/ml) SC SCH ×3 (06:14→17:00)
[2023-08-25 06:55] LABS: Basophils # (auto) 0.1 10 ^3/uL (0-0.2); Basophils % (auto) 0.7 % (0.0-2.0); Eosinophils # (auto) 0.5 10 ^3/uL (0-0.8); Eosinophils % (auto) 2.9 % (0.0-7.0); Hematocrit 38.2 % (41.0-53.0); Hemoglobin 12.1 g/dL (13.5-17.5); Lymphocytes # (auto) 2.3 10 ^3/uL (0.4-5.4); Lymphocytes % (auto) 13.6 % (10.0-50.0); Mean Corpuscular Hemoglobin 29.5 pg (28.0-32.0); Mean Corpuscular Hgb Conc. 31.8 g/dL (32.0-36.0); Mean Corpuscular Volume 92.8 fL (80.0-100.0); Monocytes # (auto) 1.6 10 ^3/uL (0-1.3); Monocytes % (auto) 9.7 % (0.0-12.0); Neutrophils # (auto) 12.2 10 ^3/uL (1.6-8.6); Neutrophils % (auto) 73.1 % (37.0-80.0); Red Blood Cells 4.11 10^6/uL (4.5-5.90); Red Cell Distribution Width 14.1 % (11.8-14.3); White Blood Cell 16.7 10^3/uL (4.4-10.8)
[2023-08-25 07:11] LABS: Alanine Aminotransferase 16 U/L (7-40); Alkaline Phosphatase 198 U/L (46-116); Anion Gap 5 (5-15); Aspartate Aminotransferase 31 U/L (13-40); BUN/Creatinine Ratio 9.8 (10.0-20.0); Bilirubin, Total 0.3 mg/dL (0.2-1.0); Blood Urea Nitrogen 17 mg/dL (9-23); Calcium 9.6 mg/dL (8.5-10.1); Carbon Dioxide 27 mmol/L (20-30); Chloride 107 mmol/L (98-107); Glucose 86 mg/dL (74-106); Potassium 3.8 mmol/L (3.5-5.1); Sodium 139 mmol/L (136-145); Total Protein 6.4 g/dL (5.7-8.2)
[2023-08-25] MEDS ORDERED: ERGOCALCIFEROL 50,000 UNIT(1.25MG) CAP PO SCH (07:45)
[2023-08-25 08:10] LABS: % Iron Saturation 20.4 % (20-55)
[2023-08-25] MEDS: CLOPIDOGREL BISULFATE 75 MG TAB PO SCH (09:54)
[2023-08-25] MEDS: CYANOCOBALAMIN 500 MCG TAB PO SCH (09:54)
[2023-08-25] MEDS: FLUoxetine HCL 20 MG CAP PO SCH (09:54)
[2023-08-25] MEDS: ASPirin 81 mg TAB PO SCH (09:54)
[2023-08-25] MEDS: ENOXAPARIN SOD 30 MG/0.3 ML SYRINGE SC SCH (09:55)
[2023-08-25] MEDS: MORPHINE SULFATE INJ 2 MG/ml SYRG IV PRN ×3 (09:56→22:52)
[2023-08-25] MEDS: NICOTINE 21MG/24 HR TOPICAL PATCH TD SCH (09:59)
[2023-08-25] MEDS ORDERED: levoFLOXacin 750MG 150 ML IV SCH (10:00)
[2023-08-25] MEDS: BUDESONIDE (INHALATION) 0.5 MG/2 ML NEB NEB SCH ×2 (11:10→22:17)
[2023-08-25] MEDS: levETIRAcetam 1000 mg/100ml 100 ML IV SCH ×2 (11:42→21:45)
[2023-08-25] MEDS: BENZTROPINE MESY 0.5 MG TAB PO SCH ×2 (11:42→21:41)
[2023-08-25 12:32] LABS: Protein, Urine 57.1 mg/dL (0.0-11.9)
[2023-08-25 12:43] LABS: Creatinine, Urine 233.4 mg/dL (30.0-125.0); Urine Protein/Creatinine Ratio 0.24
[2023-08-25] MEDS: PIPERACILLIN-TAZOB 3.375GM 100 ML IV SCH ×2 (13:52→21:45)
[2023-08-25] MEDS: ATORVASTATIN 20 MG TAB PO SCH (21:40)
[2023-08-26] VITALS (55 sets, daily range): BP systolic 82–136; BP diastolic 43–84; PULSE 57–82; RESP 10–25; TEMP 97.4–98.5; O2SAT 88–100
[2023-08-26 05:16] LABS: Basophils # (auto) 0.1 10 ^3/uL (0-0.2); Basophils % (auto) 0.5 % (0.0-2.0); Eosinophils # (auto) 0.4 10 ^3/uL (0-0.8); Eosinophils % (auto) 3.4 % (0.0-7.0); Hematocrit 36.3 % (41.0-53.0); Hemoglobin 11.7 g/dL (13.5-17.5); Lymphocytes # (auto) 0.9 10 ^3/uL (0.4-5.4); Lymphocytes % (auto) 7.1 % (10.0-50.0); Mean Corpuscular Hemoglobin 29.1 pg (28.0-32.0); Mean Corpuscular Hgb Conc. 32.3 g/dL (32.0-36.0); Mean Corpuscular Volume 89.8 fL (80.0-100.0); Monocytes # (auto) 0.6 10 ^3/uL (0-1.3); Monocytes % (auto) 4.7 % (0.0-12.0); Neutrophils # (auto) 11.1 10 ^3/uL (1.6-8.6); Neutrophils % (auto) 84.3 % (37.0-80.0); Red Blood Cells 4.04 10^6/uL (4.5-5.90); Red Cell Distribution Width 13.3 % (11.8-14.3); White Blood Cell 13.2 10^3/uL (4.4-10.8)
[2023-08-26 05:38] LABS: Alkaline Phosphatase 205 U/L (46-116); Anion Gap 4 (5-15); Carbon Dioxide 27 mmol/L (20-30); Chloride 108 mmol/L (98-107); Glucose 105 mg/dL (74-106); Potassium 3.7 mmol/L (3.5-5.1); Sodium 139 mmol/L (136-145)
[2023-08-26 05:40] LABS: Albumin 3.9 g/dL (3.2-4.8); Aspartate Aminotransferase 23 U/L (13-40)
[2023-08-26 05:57] LABS: Blood Urea Nitrogen 13 mg/dL (9-23)
[2023-08-26 05:59] LABS: Bilirubin, Total 0.3 mg/dL (0.2-1.0); Total Protein 6.2 g/dL (5.7-8.2)
[2023-08-26] MEDS: GABAPENTIN 400 MG CAP PO SCH ×3 (06:10→21:05)
[2023-08-26] MEDS: clonazePAM 0.5 MG TAB PO SCH ×3 (06:10→21:10)
[2023-08-26] MEDS: PHENYLEPHRINE IV 250 ML IV SCH (06:11)
[2023-08-26] MEDS: PIPERACILLIN-TAZOB 3.375GM 100 ML IV SCH ×3 (06:11→21:14)
[2023-08-26] MEDS: InsuLIN REG 1unit/0.01ml Soln (100units/ml) SC SCH ×3 (06:35→17:00)
[2023-08-26 06:41] LABS: Alanine Aminotransferase < 9 U/L (7-40)
[2023-08-26 08:06] LABS: Prostate Specific Antigen 0.2 ng/mL (0.0-4.0)
[2023-08-26] MEDS ORDERED: MIDODRINE HCL 10 MG TAB PO ONE (09:00)
[2023-08-26] MEDS ORDERED: LACTULOSE 20Gm/30ML SOLN PO ONE (09:00)
[2023-08-26] MEDS ORDERED: traMADol HCL 50 MG TAB PO PRN (09:00)
[2023-08-26 09:03] LABS: BUN/Creatinine Ratio 11.8 (10.0-20.0)
[2023-08-26] MEDS: ASPirin 81 mg TAB PO SCH (09:28)
[2023-08-26] MEDS: CYANOCOBALAMIN 500 MCG TAB PO SCH (09:28)
[2023-08-26] MEDS: CARBIDOPA W LEVODOPA 10/100mg TABLET PO SCH (09:29)
[2023-08-26] MEDS: ENOXAPARIN SOD 30 MG/0.3 ML SYRINGE SC SCH (09:29)
[2023-08-26] MEDS: NICOTINE 21MG/24 HR TOPICAL PATCH TD SCH (09:31)
[2023-08-26] MEDS: levETIRAcetam 1000 mg/100ml 100 ML IV SCH (09:32)
[2023-08-26] MEDS: BUDESONIDE (INHALATION) 0.5 MG/2 ML NEB NEB SCH ×2 (10:16→18:45)
[2023-08-26] MEDS: BENZTROPINE MESY 0.5 MG TAB PO SCH ×2 (10:17→21:05)
[2023-08-26] MEDS: FLUoxetine HCL 20 MG CAP PO SCH (10:17)
[2023-08-26 11:06] LABS: PSA Free 0.07 ng/mL
[2023-08-26] MEDS: MIDODRINE HCL 10 MG TAB PO SCH ×2 (12:57→17:40)
[2023-08-26] MEDS: HALOPERIDOL LACTATE 5 MG/ML INJ VIAL IM PRN (17:39)
[2023-08-26] MEDS: FERROUS SULFATE 325mg EC TAB PO SCH (17:39)
[2023-08-26] MEDS: MORPHINE SULFATE INJ 2 MG/ml SYRG IV PRN (19:58)
[2023-08-26] MEDS: ATORVASTATIN 20 MG TAB PO SCH (21:04)
[2023-08-26] MEDS: levETIRAcetam 500 MG TAB PO SCH (21:06)
[2023-08-26] MEDS ORDERED: ALPRAZolam 0.5 MG TAB PO ONE (22:00)
[2023-08-27] VITALS (13 sets, daily range): BP systolic 128–150; BP diastolic 74–88; PULSE 70–85; RESP 18–21; TEMP 36.7; O2SAT 95–99
[2023-08-27] MEDS: PIPERACILLIN-TAZOB 3.375GM 100 ML IV SCH ×2 (05:30→13:43)
[2023-08-27] MEDS: MIDODRINE HCL 10 MG TAB PO SCH ×2 (05:30→12:00)
[2023-08-27] MEDS: clonazePAM 0.5 MG TAB PO SCH ×2 (05:30→13:43)
[2023-08-27] MEDS: GABAPENTIN 400 MG CAP PO SCH ×2 (05:30→13:43)
[2023-08-27] MEDS: InsuLIN REG 1unit/0.01ml Soln (100units/ml) SC SCH ×2 (05:51→11:30)
[2023-08-27 06:49] LABS: Basophils # (auto) 0.1 10 ^3/uL (0-0.2); Basophils % (auto) 0.6 % (0.0-2.0); Eosinophils # (auto) 0.4 10 ^3/uL (0-0.8); Eosinophils % (auto) 2.6 % (0.0-7.0); Hemoglobin 12.8 g/dL (13.5-17.5); Lymphocytes # (auto) 1.2 10 ^3/uL (0.4-5.4); Lymphocytes % (auto) 8.3 % (10.0-50.0); Mean Corpuscular Hemoglobin 29.5 pg (28.0-32.0); Mean Corpuscular Hgb Conc. 32.8 g/dL (32.0-36.0); Mean Corpuscular Volume 89.9 fL (80.0-100.0); Monocytes # (auto) 0.7 10 ^3/uL (0-1.3); Neutrophils # (auto) 11.7 10 ^3/uL (1.6-8.6); Neutrophils % (auto) 83.5 % (37.0-80.0); Red Blood Cells 4.33 10^6/uL (4.5-5.90); Red Cell Distribution Width 13.4 % (11.8-14.3)
[2023-08-27 07:06] LABS: Alanine Aminotransferase 16 U/L (7-40); Alkaline Phosphatase 222 U/L (46-116); Anion Gap 7 (5-15); BUN/Creatinine Ratio 6.7 (10.0-20.0); Blood Urea Nitrogen 7 mg/dL (9-23); Calcium 9.4 mg/dL (8.7-10.4); Carbon Dioxide 24 mmol/L (20-30); Chloride 105 mmol/L (98-107); Glucose 101 mg/dL (74-106); Potassium 3.8 mmol/L (3.5-5.1); Sodium 136 mmol/L (136-145)
[2023-08-27 07:07] LABS: Albumin 4.3 g/dL (3.2-4.8); Aspartate Aminotransferase 22 U/L (13-40)
[2023-08-27 07:08] LABS: Bilirubin, Total 0.3 mg/dL (0.2-1.0); Total Protein 7.1 g/dL (5.7-8.2)
[2023-08-27] MEDS: BUDESONIDE (INHALATION) 0.5 MG/2 ML NEB NEB SCH (07:44)
[2023-08-27] MEDS ORDERED: SUGAMMADEX 200mg/2ml Vial (100MG/ML) IV ONE (08:13)
[2023-08-27] MEDS: FERROUS SULFATE 325mg EC TAB PO SCH (08:15)
[2023-08-27] MEDS ORDERED: CARBIDOPA W LEVODOPA 10/100mg TABLET PO SCH (10:00)
[2023-08-27] MEDS: ASPirin 81 mg TAB PO SCH (10:33)
[2023-08-27] MEDS: CYANOCOBALAMIN 500 MCG TAB PO SCH (10:35)
[2023-08-27] MEDS: BENZTROPINE MESY 0.5 MG TAB PO SCH (10:35)
[2023-08-27] MEDS: levETIRAcetam 500 MG TAB PO SCH (10:36)
[2023-08-27] MEDS: ENOXAPARIN SOD 30 MG/0.3 ML SYRINGE SC SCH (10:38)
[2023-08-27] MEDS: NICOTINE 21MG/24 HR TOPICAL PATCH TD SCH (10:38)
[2023-08-27] MEDS: FLUoxetine HCL 20 MG CAP PO SCH (10:39)
[2023-08-27] MEDS: HALOPERIDOL LACTATE 5 MG/ML INJ VIAL IM PRN (11:18)
[2023-08-27] MEDS ORDERED: ERGO1CAP23 PO (12:56)
[2023-08-27] MEDS ORDERED: ALB5IS NEB (12:56)
[2023-08-27] MEDS ORDERED: AUG875T PO (12:56)
[2023-08-27] MEDS ORDERED: FER325T PO (12:56)
[2023-08-27] MEDS ORDERED: FLUO20CA90 PO (12:56)
[2023-08-27] MEDS ORDERED: ASPI-325 PO (12:56)
[2023-08-27] MEDS ORDERED: ACET-1882 PO (12:56)
[2023-08-27] MEDS ORDERED: NIC21P TD (12:56)
[2023-08-27] MEDS ORDERED: CYAN500T3 PO (12:56)
[2023-08-27] MEDS ORDERED: CARB10TA21 PO (13:00)
[2023-08-27] MEDS ORDERED: TRAM50TA2 PO (13:09)
[2023-08-27] MEDS ORDERED: QUET400T13 PO (13:30)
[2023-08-27] MEDS ORDERED: MIDAZOLAM HCL 2MG/2ML 2ml VIAL (1mg/ml) IV PRN (13:30)
== END 2023-08-27 18:00 | disposition home health service (06) | DRG 58 ==
LOC: ER 08:25 → OVERFLOW 16:08 → WEST WING 22:50 → ICU CENTRL 08-25 01:50 → TELE-WESTW 08-26 15:56
PROVIDERS: ADMIT Internal Medicine; ATTEND Emergency Medicine
DX: G24.01 Drug induced subacute dyskinesia (principal); N17.0 Acute kidney failure with tubular necrosis; G40.409 Other generalized epilepsy and epileptic syndromes, not intractable, without status epilepticus; G20.A1 Parkinson's disease without dyskinesia, without mention of fluctuations; I95.2 Hypotension due to drugs; G45.0 Vertebro-basilar artery syndrome; F17.210 Nicotine dependence, cigarettes, uncomplicated; I10 Essential (primary) hypertension; F31.9 Bipolar disorder, unspecified; F43.10 Post-traumatic stress disorder, unspecified; F20.9 Schizophrenia, unspecified; M54.50 Low back pain, unspecified; G89.4 Chronic pain syndrome; T40.415A Adverse effect of fentanyl or fentanyl analogs, initial encounter; I25.10 Atherosclerotic heart disease of native coronary artery without angina pectoris; T40.2X5A Adverse effect of other opioids, initial encounter; F02.83 Dementia in other diseases classified elsewhere, unspecified severity, with mood disturbance; N39.0 Urinary tract infection, site not specified; Z79.891 Long term (current) use of opiate analgesic; Z90.49 Acquired absence of other specified parts of digestive tract; Z83.3 Family history of diabetes mellitus; Z82.49 Family history of ischemic heart disease and other diseases of the circulatory system; Z79.899 Other long term (current) drug therapy; Y92.89 Other specified places as the place of occurrence of the external cause; Z89.421 Acquired absence of other right toe(s); Z91.51 Personal history of suicidal behavior
CPT/HCPCS: 36415; 70450; 70551; 71045; 76775; 80053; 80061; 80178; 80307; 81001; 82306; 82533; 82542; 82570; 82607; 82962; 83036; 83540; 83550; 83605; 83880; 83970; 84154; 84156; 84300; 84443; 84484; 85025; 87040; 87081; 87086; 93005; 93306; 93886; 94640; 95819; 97110; 97116; 97163; 97530; G0378; J2543

== ENCOUNTER → 2024-06-09 | Day surgery (SDC) | payer MEDICAID ==
[2024-06-07 14:19] LABS: Urine Bacteria None Seen /hpf (None Seen)
[2024-06-07 14:25] LABS: Basophils # (auto) 0.1 10 ^3/uL (0-0.2); Basophils % (auto) 1.1 % (0.0-2.0); Eosinophils # (auto) 0.2 10 ^3/uL (0-0.8); Eosinophils % (auto) 3.3 % (0.0-7.0); Hemoglobin 15.8 g/dL (13.5-17.5); Lymphocytes # (auto) 1.4 10 ^3/uL (0.4-5.4); Lymphocytes % (auto) 20.2 % (10.0-50.0); Mean Corpuscular Hemoglobin 30.6 pg (28.0-32.0); Mean Corpuscular Hgb Conc. 33.6 g/dL (32.0-36.0); Monocytes # (auto) 0.4 10 ^3/uL (0-1.3); Monocytes % (auto) 6.3 % (0.0-12.0); Neutrophils # (auto) 4.7 10 ^3/uL (1.6-8.6); Neutrophils % (auto) 69.1 % (37.0-80.0); Platelet Count (auto) 236 10^3/uL (140-450); Red Blood Cells 5.16 10^6/uL (4.5-5.90); White Blood Cell 6.8 10^3/uL (4.4-10.8)
[2024-06-07 14:40] LABS: Alanine Aminotransferase 18 U/L (7-40); Albumin 4.7 g/dL (3.2-4.8); Alkaline Phosphatase 199 U/L (46-116); Anion Gap 6 (5-15); Aspartate Aminotransferase 15 U/L (13-40); Bilirubin, Total 0.4 mg/dL (0.2-1.0); Blood Urea Nitrogen 16 mg/dL (9-23); Calcium 9.9 mg/dL (8.7-10.4); Carbon Dioxide 28 mmol/L (20-31); Chloride 105 mmol/L (98-107); Glucose 112 mg/dL (74-106); Potassium 3.8 mmol/L (3.5-5.1); Sodium 139 mmol/L (136-145); Total Protein 7.9 g/dL (5.7-8.2)
[2024-06-07 14:42] LABS: INR 0.98 (0.9-1.15); Partial Thromboplastin Time 26.3 SEC (24.5-34.5); Prothrombin Time 10.4 sec (9.3-11.8)
[2024-06-07 14:47] LABS: Urine Blood 1+ /uL (Negative); Urine Clarity Clear (Clear); Urine Color Yellow (Yellow); Urine Mucus FEW (None Seen); Urine Protein, UAD 1+ (Negative); Urine Specific Gravity 1.031 (1.001-1.035); Urine Urobilinogen Normal (Negative); Urine WBC 2 /hpf (0 - 3)
[~2024-06-09] MED LIST changes: +ACET-1882 PO; +ALB5IS NEB; -ALPR1TAB2 PO; +ASPI-325 PO; -BENZ2TAB50 PO; +CARB10TA21 PO; +CIPR250T3 PO; +CYAN500T3 PO; +DONE1TAB88 PO; +DexAMETHasone SOD PHOS 10MG/1ML VIAL INJ ONE; +ERGO1CAP23 PO; -FENT25DI2 TD; +FER325T PO; +FLUO-470 PO; -FLUO20CA19 PO; -HAL5T PO; -LITH300C3 PO; -LITH300T5 PO; +LORA-1105 PO; +MEPERIDINE HCL (25 MG/ML) 1ML VIAL ONE; +MIDAZOLAM HCL 2MG/2ML 2ml VIAL (1mg/ml) ONE; +MORP10CA10 OR; -MORP15TA PO; +NIC21P TD; -ONDA-144 PO; -PROM25TA10 PO; +PROPOFOL 10 MG/ML 20 ML IV ONE; +VIBE75TA PO; +ceFAZolin 2 GM/D5W100ml 100 ML IV ONE; +fentaNYL CITRATE 100 MCG/2 ML VL ONE
[2024-06-09] MEDS: BUPIVACAINE 0.5% MPF INJ 30ML SDV IJ ONE (12:18)
[2024-06-09 12:48] VITALS: RESP 12; TEMP 97.6; O2SAT 98
[2024-06-09 13:10] VITALS: BP 132/99; PULSE 82; RESP 11; O2SAT 94
== END | disposition home or self-care (01) ==
LOC: SUR 11:08
PROVIDERS: ATTEND Podiatrist
DX: M86.171 Other acute osteomyelitis, right ankle and foot (principal); L98.8 Other specified disorders of the skin and subcutaneous tissue; J44.9 Chronic obstructive pulmonary disease, unspecified; I12.9 Hypertensive chronic kidney disease with stage 1 through stage 4 chronic kidney disease, or unspecified chronic kidney disease; N18.30 Chronic kidney disease, stage 3 unspecified; I25.10 Atherosclerotic heart disease of native coronary artery without angina pectoris; E66.9 Obesity, unspecified; Z68.34 Body mass index [BMI] 34.0-34.9, adult; F41.9 Anxiety disorder, unspecified; F31.9 Bipolar disorder, unspecified; Z87.891 Personal history of nicotine dependence; G20.C Parkinsonism, unspecified; Z98.890 Other specified postprocedural states; Z90.49 Acquired absence of other specified parts of digestive tract
CPT/HCPCS: 28810; 36415; 80053; 81001; 85025; 85610; 85730; J1100; J2175; J2250; J2704; J3010; J3490